=== PATIENT | male | born 1965 | race Caucasian/White ===

== ENCOUNTER 2018-05-20 12:09 | Inpatient (IN) | payer MEDICARE, MEDICAID ==
[~2018-05-20] VITALS: Ht 177.8 cm; Wt 109.6 kg
[2018-05-20 12:30] LABS: BASOPHILS % (AUTO) 0.8 % (0.0-2.0); EOSINOPHILS % (AUTO) 0.3 % (1.0-6.0); HEMATOCRIT 40.3 % (41-53); HEMOGLOBIN 13.6 g/dL (13.5-17.5); MEAN CORPUSCULAR HEMOGLOBIN 30.8 pg (26.0-34.0); MEAN CORPUSCULAR HGB CONC 33.6 G/dL (31.0-37.0); MEAN CORPUSCULAR VOLUME 92 fL (80-100); MONOCYTES # (AUTO) 0.5 K/uL (0.1-1.0); MONOCYTES % (AUTO) 5.7 % (2.0-9.0); NEUTROPHILS # (AUTO) 7.2 K/uL (1.8-7.7); NEUTROPHILS % (AUTO) 82.2 % (40.0-70.0); PLATELET COUNT (AUTO) 251 K/uL (150-450); RED BLOOD CELL COUNT(AUTO) 4.41 MIL/uL (4.50-5.90); RED CELL DISTRIBUTION WIDTH 13.4 % (11.5-14.5)
[2018-05-20 12:36] LABS: ANION GAP 14 mmol/L (8-16); CALCIUM, TOTAL 9.3 mg/dL (8.8-10.5); CARBON DIOXIDE 25 mmol/L (22-29); CHLORIDE 101 mmol/L (98-107); CREATININE 0.88 mg/dL (0.60-1.30); GLOMERULAR FILTR. RATE CALC > 60 mL/min (>60); GLUCOSE,RANDOM 103 mg/dL (70-110); POTASSIUM 3.9 mmol/L (3.5-5.1); SODIUM SERUM 140 mmol/L (136-145); UREA NITROGEN, BLOOD 19 mg/dL (7-18)
[2018-05-20 12:42] LABS: ALANINE AMINOTRANSFERASE 28 U/L (12-78); ALBUMIN 3.8 g/dL (3.4-5.0); ALKALINE PHOSPHATASE 96 U/L (46-116); ASPARTATE AMINOTRANSFERASE 26 U/L (15-37); BILIRUBIN,TOTAL 0.8 mg/dL (0.1-1.0); TOTAL PROTEIN, SERUM 7.4 g/dL (6.4-8.2)
[2018-05-20] MEDS ORDERED: HYDROCODONE/ACETAMINOPHEN 5-325 MG TABLET PO ONE (12:45)
[2018-05-20] MEDS ORDERED: PERTUSS(ACELL),DIPH,TET VAC/PF 0.5 ML VIAL IM ONE (12:45)
[2018-05-20] MEDS ORDERED: BUPIVACAINE HCL/PF 0.25% 10 ML VIAL INJ ONE (12:45)
[2018-05-20] MEDS ORDERED: LORazepam 2 MG TABLET PO ONE ×2 (12:45→13:45)
[2018-05-20] MEDS ORDERED: HALOPERIDOL 5 MG TABLET PO ONE (14:00)
[2018-05-20] MEDS ORDERED: DiphenhydrAMINE HCL 25 MG/10 ML ELIXIR UDCUP PO ONE (14:00)
[2018-05-20] MEDS ORDERED: IBUPROFEN 400 MG TABLET PO PRN ×2 (14:15→19:30)
[2018-05-20] MEDS ORDERED: LORazepam 2 MG TABLET PO PRN (14:15)
[2018-05-20] MEDS ORDERED: HALOPERIDOL 5 MG TABLET PO PRN (14:15)
[2018-05-20] MEDS ORDERED: ZOLPIDEM TARTRATE 10 MG TABLET PO PRN (14:15)
[2018-05-20] MEDS ORDERED: ACETAMINOPHEN 325 MG TABLET PO PRN ×2 (14:15→19:30)
[2018-05-20 16:00] LABS: AMPHET/METH SCREEN,URINE POSITIVE (NEGATIVE); BARBITURATE SCREEN, URINE NEGATIVE (NEGATIVE); BENZODIAZEPINES SCREEN,URINE NEGATIVE (NEGATIVE); CANNABINOID SCREEN,URINE NEGATIVE (NEGATIVE); COCAINE SCREEN,URINE POSITIVE (NEGATIVE); METHADONE SCREEN, URINE NEGATIVE (NEGATIVE); OPIATE SCREEN,URINE NEGATIVE (NEGATIVE); PHENCYCLIDINE SCREEN,URINE NEGATIVE (NEGATIVE)
[2018-05-20 18:25] VITALS: BP 139/88
[2018-05-20] MEDS ORDERED: LOPERAMIDE HCL 2 MG CAPSULE PO PRN (19:30)
[2018-05-20] MEDS ORDERED: MAG HYDROX/AL HYDROX/SIMETH ES 30 ML SUSPENSION UDCUP PO PRN (19:30)
[2018-05-20] MEDS ORDERED: ONDANSETRON HCL 4 MG TABLET PO PRN (19:30)
[2018-05-20] MEDS ORDERED: DOCUSATE SODIUM 100 MG CAPSULE PO PRN (19:30)
[2018-05-20] MEDS ORDERED: NICOTINE 14 MG/24 HOUR PATCH TD PRN (19:30)
[2018-05-20] MEDS ORDERED: CloNIDine HCL 0.1 MG TABLET PO PRN (19:30)
[2018-05-20] MEDS ORDERED: MAGNESIUM HYDROXIDE SUSPENSION 30 ML UDCUP PO PRN (19:30)
[2018-05-20] MEDS ORDERED: PETROLATUM,WHITE 71 GM JELLY TP PRN (19:30)
[2018-05-20] MEDS ORDERED: GuaiFENesin/D-METHORPHAN [SUGAR-FREE] 200-20MG/10 ML SYRUP UDCUP PO PRN (19:30)
[2018-05-20] MEDS ORDERED: ALBUTEROL SULFATE HFA 90 MCG/PUFF 8 GM INHALER IH PRN (19:30)
[2018-05-21 08:00] VITALS: BP 127/58
[2018-05-21 11:29] LABS: GLUCOMETER DEV NAME(LOC) 3E.C; GLUCOSE,POINT OF CARE 85 MG/DL (70-110)
[2018-05-21] MEDS: OLANZapine 5 MG RAPDIS TABLET PO SCH ×2 (13:54→17:35)
[2018-05-21] MEDS: DIVALPROEX SODIUM 500 MG ER TABLET PO SCH (13:54)
[2018-05-21 17:39] LABS: GLUCOMETER DEV NAME(LOC) 3E.C; GLUCOSE,POINT OF CARE 90 MG/DL (70-110)
[2018-05-22 05:34] LABS: GLUCOMETER DEV NAME(LOC) 3E.C; GLUCOSE,POINT OF CARE 102 MG/DL (70-110)
[2018-05-22 08:13] LABS: HEMOGLOBIN A1C 6.5 % (4.5-6.2)
[2018-05-22 08:15] LABS: BASOPHILS % (AUTO) 0.5 % (0.0-2.0); EOSINOPHILS % (AUTO) 3.8 % (1.0-6.0); HEMOGLOBIN 14.7 g/dL (13.5-17.5); LYMPHOCYTES # (AUTO) 1.8 K/uL (1.0-4.8); LYMPHOCYTES % (AUTO) 24.3 % (22.0-44.0); MEAN CORPUSCULAR HEMOGLOBIN 31.3 pg (26.0-34.0); MEAN CORPUSCULAR HGB CONC 34.1 G/dL (31.0-37.0); MEAN CORPUSCULAR VOLUME 92 fL (80-100); MONOCYTES # (AUTO) 0.5 K/uL (0.1-1.0); MONOCYTES % (AUTO) 6.8 % (2.0-9.0); NEUTROPHILS # (AUTO) 4.8 K/uL (1.8-7.7); NEUTROPHILS % (AUTO) 64.6 % (40.0-70.0); PLATELET COUNT (AUTO) 269 K/uL (150-450); RED BLOOD CELL COUNT(AUTO) 4.69 MIL/uL (4.50-5.90); RED CELL DISTRIBUTION WIDTH 13.9 % (11.5-14.5)
[2018-05-22 08:58] VITALS: BP 98/72
[2018-05-22] MEDS: DIVALPROEX SODIUM 500 MG ER TABLET PO SCH (09:07)
[2018-05-22] MEDS: OLANZapine 5 MG RAPDIS TABLET PO SCH ×2 (09:07→16:56)
[2018-05-22 09:22] LABS: ALANINE AMINOTRANSFERASE 25 U/L (12-78); ALBUMIN 3.5 g/dL (3.4-5.0); ALKALINE PHOSPHATASE 96 U/L (46-116); ANION GAP 10 mmol/L (8-16); ASPARTATE AMINOTRANSFERASE 20 U/L (15-37); BILIRUBIN,TOTAL 0.4 mg/dL (0.1-1.0); CALCIUM, TOTAL 8.9 mg/dL (8.8-10.5); CARBON DIOXIDE 28 mmol/L (22-29); CHLORIDE 101 mmol/L (98-107); CHOL/HDL RATIO 2.5 (4.2-7.3); CHOLESTEROL 130 mg/dL (131-200); CREATININE 0.65 mg/dL (0.60-1.30); GLOMERULAR FILTR. RATE CALC > 60 mL/min (>60); GLUCOSE,RANDOM 103 mg/dL (70-110); HDL CHOLESTEROL 53 mg/dL (40-60); LDL CHOL (CALC.) 62 mg/dL (0-130); SODIUM SERUM 139 mmol/L (136-145); TOTAL PROTEIN, SERUM 6.7 g/dL (6.4-8.2); TRIGLYCERIDES 75 mg/dL (15-150); UREA NITROGEN, BLOOD 15 mg/dL (7-18)
[2018-05-22 16:23] LABS: GLUCOMETER DEV NAME(LOC) 3E.C; GLUCOSE,POINT OF CARE 151 MG/DL (70-110)
[2018-05-22 17:29] VITALS: BP 112/78
[2018-05-22] MEDS: BACITRACIN 28.4 GM OINTMENT TP SCH (21:30)
[2018-05-23 06:51] LABS: GLUCOMETER DEV NAME(LOC) 3E.C; GLUCOSE,POINT OF CARE 94 MG/DL (70-110)
[2018-05-23] MEDS: DIVALPROEX SODIUM 500 MG ER TABLET PO SCH (08:18)
[2018-05-23] MEDS: OLANZapine 5 MG RAPDIS TABLET PO SCH (08:18)
[2018-05-23 08:34] VITALS: BP 113/63
[2018-05-23] MEDS: BACITRACIN 28.4 GM OINTMENT TP SCH (12:52)
[2018-05-23] MEDS ORDERED: DIVA500T52 PO (14:58)
[2018-05-23] MEDS ORDERED: OLAN5TAB40 PO (14:58)
== END 2018-05-23 16:45 | disposition home or self-care (01) | DRG 885 ==
LOC: EMS 12:10 → 3EC 17:07
PROVIDERS: ADMIT Psychiatry & Neurology Child & Adolescent Psychiatry; ATTEND Psychiatry & Neurology Child & Adolescent Psychiatry
PROC: 0HQEXZZ Repair Left Lower Arm Skin, External Approach (ICD-10-PCS; principal; 2018-05-20)
PROC: 0HQDXZZ Repair Right Lower Arm Skin, External Approach (ICD-10-PCS; 2018-05-20)
PROC: 3E0234Z Introduction of Serum, Toxoid and Vaccine into Muscle, Percutaneous Approach (ICD-10-PCS; 2018-05-20)
DX: F25.1 Schizoaffective disorder, depressive type (principal); R45.851 Suicidal ideations; F10.10 Alcohol abuse, uncomplicated; F15.90 Other stimulant use, unspecified, uncomplicated; F41.9 Anxiety disorder, unspecified; M19.90 Unspecified osteoarthritis, unspecified site; G89.29 Other chronic pain; S61.512A Laceration without foreign body of left wrist, initial encounter; S61.511A Laceration without foreign body of right wrist, initial encounter; F19.10 Other psychoactive substance abuse, uncomplicated; Z71.41 Alcohol abuse counseling and surveillance of alcoholic; Z71.51 Drug abuse counseling and surveillance of drug abuser; X78.8XXA Intentional self-harm by other sharp object, initial encounter; Y93.89 Activity, other specified; Y92.89 Other specified places as the place of occurrence of the external cause; Y99.8 Other external cause status
CPT/HCPCS: 12002; 83036; 84443; 90471; 90715; G0480; J3490

== ENCOUNTER 2018-09-19 22:51 | Inpatient (IN) | payer MEDICARE, MEDICAID ==
[~2018-09-19] VITALS: Ht 177.8 cm; Wt 111.8 kg
[~2018-09-19 22:51] MED LIST: DIVA500T52 PO; OLAN5TAB40 PO
[2018-09-19] MEDS ORDERED: TRAZ-186 PO (23:07)
[2018-09-20] MEDS ORDERED: HALOPERIDOL 5 MG TABLET PO ONE (00:30)
[2018-09-20] MEDS ORDERED: LORazepam 1 MG TABLET PO ONE (00:30)
[2018-09-20] MEDS ORDERED: DiphenhydrAMINE HCL 25 MG CAPSULE PO ONE (00:30)
[2018-09-20 00:58] LABS: BASOPHILS % (AUTO) 0.3 % (0.0-2.0); EOSINOPHILS % (AUTO) 1.2 % (1.0-6.0); HEMATOCRIT 40.8 % (41-53); HEMOGLOBIN 13.5 g/dL (13.5-17.5); LYMPHOCYTES # (AUTO) 1.2 K/uL (1.0-4.8); LYMPHOCYTES % (AUTO) 12.4 % (22.0-44.0); MEAN CORPUSCULAR HEMOGLOBIN 30.8 pg (26.0-34.0); MEAN CORPUSCULAR HGB CONC 33.2 G/dL (31.0-37.0); MEAN CORPUSCULAR VOLUME 93 fL (80-100); MONOCYTES # (AUTO) 0.8 K/uL (0.1-1.0); MONOCYTES % (AUTO) 8.8 % (2.0-9.0); NEUTROPHILS # (AUTO) 7.3 K/uL (1.8-7.7); NEUTROPHILS % (AUTO) 77.3 % (40.0-70.0); PLATELET COUNT (AUTO) 233 K/uL (150-450); RED BLOOD CELL COUNT(AUTO) 4.39 MIL/uL (4.50-5.90); RED CELL DISTRIBUTION WIDTH 13.2 % (11.5-14.5)
[2018-09-20] MEDS ORDERED: ZOLPIDEM TARTRATE 10 MG TABLET PO PRN (01:00)
[2018-09-20] MEDS ORDERED: LORazepam 2 MG TABLET PO PRN (01:00)
[2018-09-20 01:08] LABS: ALANINE AMINOTRANSFERASE 26 U/L (12-78); ALBUMIN 3.5 g/dL (3.4-5.0); ALKALINE PHOSPHATASE 108 U/L (46-116); ANION GAP 10 mmol/L (8-16); ASPARTATE AMINOTRANSFERASE 26 U/L (15-37); CALCIUM, TOTAL 8.6 mg/dL (8.8-10.5); CARBON DIOXIDE 25 mmol/L (22-29); CHLORIDE 103 mmol/L (98-107); CREATININE 0.82 mg/dL (0.60-1.30); GLOMERULAR FILTR. RATE CALC > 60 mL/min (>60); GLUCOSE,RANDOM 124 mg/dL (70-110); POTASSIUM 3.8 mmol/L (3.5-5.1); SODIUM SERUM 138 mmol/L (136-145); TOTAL PROTEIN, SERUM 7.2 g/dL (6.4-8.2)
[2018-09-20 01:13] LABS: UREA NITROGEN, BLOOD 19 mg/dL (7-18)
[2018-09-20 02:48] LABS: AMPHET/METH SCREEN,URINE POSITIVE (NEGATIVE); BARBITURATE SCREEN, URINE NEGATIVE (NEGATIVE); BENZODIAZEPINES SCREEN,URINE NEGATIVE (NEGATIVE); CANNABINOID SCREEN,URINE NEGATIVE (NEGATIVE); COCAINE SCREEN,URINE NEGATIVE (NEGATIVE); METHADONE SCREEN, URINE NEGATIVE (NEGATIVE); OPIATE SCREEN,URINE NEGATIVE (NEGATIVE); PHENCYCLIDINE SCREEN,URINE NEGATIVE (NEGATIVE)
[2018-09-20 03:51] VITALS: BP 143/91
[2018-09-20 04:22] LABS: APPEARANCE,URINE TURBID (CLEAR); BILIRUBIN,URINE NEGATIVE (NEGATIVE); GLUCOSE, URINE (UA) NEGATIVE (NEGATIVE); KETONES,URINE NEGATIVE (NEGATIVE); LEUKOCYTE ESTERASE ,URINE NEGATIVE (NEGATIVE); NITRATE,URINE NEGATIVE (NEGATIVE); OCCULT BLOOD,URINE NEGATIVE (NEGATIVE); PH,URINE 5.5 (5.0-8.0); PROTEIN,URINE NEGATIVE (NEGATIVE)
[2018-09-20] MEDS ORDERED: PETROLATUM,WHITE 28 GM JELLY TP PRN (07:30)
[2018-09-20] MEDS ORDERED: NICOTINE 14 MG/24 HOUR PATCH TD PRN (07:30)
[2018-09-20] MEDS ORDERED: GuaiFENesin/D-METHORPHAN [SUGAR-FREE] 200-20MG/10 ML SYRUP UDCUP PO PRN (07:30)
[2018-09-20] MEDS ORDERED: ALBUTEROL SULFATE HFA 90 MCG/PUFF 8 GM INHALER IH PRN (07:30)
[2018-09-20] MEDS ORDERED: MAG HYDROX/AL HYDROX/SIMETH ES 30 ML SUSPENSION UDCUP PO PRN (07:30)
[2018-09-20] MEDS ORDERED: ACETAMINOPHEN 325 MG TABLET PO PRN (07:30)
[2018-09-20] MEDS ORDERED: DOCUSATE SODIUM 100 MG CAPSULE PO PRN (07:30)
[2018-09-20] MEDS ORDERED: ONDANSETRON HCL 4 MG TABLET PO PRN (07:30)
[2018-09-20] MEDS ORDERED: CloNIDine HCL 0.1 MG TABLET PO PRN (07:30)
[2018-09-20] MEDS ORDERED: LOPERAMIDE HCL 2 MG CAPSULE PO PRN (07:30)
[2018-09-20] MEDS ORDERED: MAGNESIUM HYDROXIDE SUSPENSION 30 ML UDCUP PO PRN (07:30)
[2018-09-20 09:02] VITALS: BP 144/76
[2018-09-20 17:12] VITALS: BP 126/72
[2018-09-20] MEDS: LURASIDONE HCL 40 MG TABLET PO SCH (17:33)
[2018-09-20] MEDS: TraZODone HCL 100 MG TABLET PO SCH (20:40)
[2018-09-21 06:08] LABS: BASOPHILS % (AUTO) 0.6 % (0.0-2.0); EOSINOPHILS % (AUTO) 5.1 % (1.0-6.0); HEMATOCRIT 41.2 % (41-53); HEMOGLOBIN 13.6 g/dL (13.5-17.5); LYMPHOCYTES # (AUTO) 1.5 K/uL (1.0-4.8); LYMPHOCYTES % (AUTO) 26.7 % (22.0-44.0); MEAN CORPUSCULAR HEMOGLOBIN 30.7 pg (26.0-34.0); MEAN CORPUSCULAR HGB CONC 32.9 G/dL (31.0-37.0); MEAN CORPUSCULAR VOLUME 93 fL (80-100); MONOCYTES # (AUTO) 0.5 K/uL (0.1-1.0); MONOCYTES % (AUTO) 9.4 % (2.0-9.0); NEUTROPHILS # (AUTO) 3.2 K/uL (1.8-7.7); NEUTROPHILS % (AUTO) 58.2 % (40.0-70.0); PLATELET COUNT (AUTO) 212 K/uL (150-450); RED BLOOD CELL COUNT(AUTO) 4.42 MIL/uL (4.50-5.90); RED CELL DISTRIBUTION WIDTH 13.2 % (11.5-14.5)
[2018-09-21 06:34] LABS: HEMOGLOBIN A1C 6.7 % (4.5-6.2)
[2018-09-21 06:41] VITALS: BP 117/62
[2018-09-21 06:45] LABS: ALANINE AMINOTRANSFERASE 21 U/L (12-78); ALKALINE PHOSPHATASE 105 U/L (46-116); ANION GAP 7 mmol/L (8-16); ASPARTATE AMINOTRANSFERASE 19 U/L (15-37); BILIRUBIN,TOTAL 0.4 mg/dL (0.1-1.0); CALCIUM, TOTAL 8.5 mg/dL (8.8-10.5); CARBON DIOXIDE 28 mmol/L (22-29); CHLORIDE 104 mmol/L (98-107); CHOL/HDL RATIO 2.4 (4.2-7.3); CHOLESTEROL 109 mg/dL (131-200); CREATININE 0.81 mg/dL (0.60-1.30); GLOMERULAR FILTR. RATE CALC > 60 mL/min (>60); GLUCOSE,RANDOM 111 mg/dL (70-110); HDL CHOLESTEROL 45 mg/dL (40-60); LDL CHOL (CALC.) 52 mg/dL (0-130); POTASSIUM 4.4 mmol/L (3.5-5.1); SODIUM SERUM 139 mmol/L (136-145); THYROID STIMULATING HORMONE 0.45 uIU/mL (0.36-3.74); TOTAL PROTEIN, SERUM 6.1 g/dL (6.4-8.2); TRIGLYCERIDES 61 mg/dL (15-150); UREA NITROGEN, BLOOD 15 mg/dL (7-18)
[2018-09-21] MEDS: IBUPROFEN 400 MG TABLET PO PRN ×2 (06:47→09:45)
[2018-09-21 06:56] LABS: VALPROIC ACID < 3 mcg/mL (50-100)
[2018-09-21] MEDS: HALOPERIDOL 5 MG TABLET PO PRN (09:44)
[2018-09-21] MEDS: LURASIDONE HCL 40 MG TABLET PO SCH (17:17)
[2018-09-21] MEDS: TraZODone HCL 100 MG TABLET PO SCH (20:41)
[2018-09-22 04:45] VITALS: BP 119/94
[2018-09-22] MEDS: HALOPERIDOL 5 MG TABLET PO PRN (04:50)
[2018-09-22] MEDS: IBUPROFEN 400 MG TABLET PO PRN (04:50)
[2018-09-22 08:00] VITALS: BP 142/72
[2018-09-22] MEDS ORDERED: LURA40 PO (15:37)
[2018-09-22] MEDS ORDERED: TRAZ-220 PO (15:38)
[2018-09-22] MEDS: LURASIDONE HCL 40 MG TABLET PO SCH (16:43)
== END 2018-09-22 16:45 | disposition home or self-care (01) | DRG 885 ==
LOC: EMS 22:53 → 3EX 09-20 02:47
PROVIDERS: ADMIT Psychiatry & Neurology Psychiatry; ATTEND Psychiatry & Neurology Psychiatry
DX: F25.9 Schizoaffective disorder, unspecified (principal); R45.851 Suicidal ideations; E83.51 Hypocalcemia; F10.10 Alcohol abuse, uncomplicated; Z71.41 Alcohol abuse counseling and surveillance of alcoholic; F15.90 Other stimulant use, unspecified, uncomplicated; G89.29 Other chronic pain; F31.9 Bipolar disorder, unspecified; Z91.5 Personal history of self-harm; Z59.0 Homelessness
CPT/HCPCS: 83036; 84443; G0378